=== PATIENT | male | born 1955 | race American Indian/Alaskan Native ===

== ENCOUNTER 2023-10-13 06:42 | Day surgery (SDC) | payer MEDICARE, OTHER ==
[~2023-10-13] VITALS: Ht 182.9 cm; Wt 101.2 kg
[~2023-10-13 06:42] MED LIST: Aciphex20 MG PO; DOXEPIN HCL3 MG PO; Flomax0.4 MG PO; Pravastatin Sod80 MG PO; Robaxin750 MG PO; SYNTHROID175 MC1 PO; VALS80 PO
[2023-10-13 09:14] VITALS: BP 125/94
--- NOTE | 2023-10-13 09:15 | NUR ---
10[facility]13[facility]23 0915 [facility] PT REPORTED NAUSEA AND CRAMPING PAIN. BOTH SYMPTOMS IMPROVED AFTER PATIENT PASSED SOME GAS AND DRANK SOME PO FLUIDS. PATIENT STATED READY TO GO HOME AND NOT WORRIED ABOUT NAUSEA OR PAIN.
== END 2023-10-13 09:07 | disposition home or self-care (01) ==
LOC: ORSCSDS 06:42
PROVIDERS: Specialist
PROC: 0DBM8ZX Excision of Descending Colon, Via Natural or Artificial Opening Endoscopic, Diagnostic (ICD-10-PCS; principal; 2023-10-13 08:00)
PROC: 0DBL8ZX Excision of Transverse Colon, Via Natural or Artificial Opening Endoscopic, Diagnostic (ICD-10-PCS; principal; 2023-10-13 08:00)
PROC: 0DBP8ZX Excision of Rectum, Via Natural or Artificial Opening Endoscopic, Diagnostic (ICD-10-PCS; principal; 2023-10-13 08:00)
PROC: 0DBH8ZX Excision of Cecum, Via Natural or Artificial Opening Endoscopic, Diagnostic (ICD-10-PCS; principal; 2023-10-13 08:00)
DX: Z12.11 Encounter for screening for malignant neoplasm of colon (principal); Z86.010 Personal history of colon polyps; D12.0 Benign neoplasm of cecum; D12.3 Benign neoplasm of transverse colon; D12.4 Benign neoplasm of descending colon; K62.1 Rectal polyp; K57.30 Diverticulosis of large intestine without perforation or abscess without bleeding; K64.4 Residual hemorrhoidal skin tags; Z85.46 Personal history of malignant neoplasm of prostate; Z85.850 Personal history of malignant neoplasm of thyroid; E78.5 Hyperlipidemia, unspecified; K21.9 Gastro-esophageal reflux disease without esophagitis; Z79.899 Other long term (current) drug therapy
CPT/HCPCS: 88305; J2704; J7120

== ENCOUNTER 2024-04-16 03:37 | Inpatient (IN) | payer MEDICARE, OTHER ==
[~2024-04-16] VITALS: Ht 182.9 cm; Wt 113.1 kg
[2024-04-16] VITALS (13 sets, daily range): BP systolic 115–140; BP diastolic 86–113
[2024-04-16 04:03] LABS: BASOPHILS ABSOLUTE AUTO 0.09 K/mm3 (0.00-0.23); BASOPHILS PERCENT AUTO 1 % (0-2); EOSINOPHILS ABSOLUTE AUTO 0.22 K/mm3 (0.00-0.68); EOSINOPHILS PERCENT AUTO 3 % (0-6); Hematocrit 51.6 % (37.0-53.0); Hemoglobin 17.2 g/dL (13.5-17.5); IMMATURE GRAN ABSOLUTE AUTO 0.02 K/mm3 (0.00-0.10); IMMATURE GRAN PERCENT AUTO 0 % (0-1); LYMPHOCYTES ABSOLUTE AUTO 1.67 K/mm3 (0.84-5.20); LYMPHOCYTES PERCENT AUTO 24 % (21-46); MONOCYTES ABSOLUTE AUTO 0.44 K/mm3 (0.16-1.47); MONOCYTES PERCENT AUTO 6 % (4-13); Mean Corpuscular HGB 29.2 pg (26.0-34.0); Mean Corpuscular HGB Conc 33.3 g/dL (31.5-36.5); Mean Corpuscular Volume 88 fL (80-100); Mean Platelet Volume 10.6 fL (9.1-12.4); NEUTROPHILS ABSOLUTE AUTO 4.61 K/mm3 (1.96-9.15); NEUTROPHILS PERCENT AUTO 65 % (41-73); Platelet Count 188 K/mm3 (150-400); RDW Coefficient Variation 12.8 % (11.7-14.2); RDW Standard Deviation 41.2 fL (35.1-46.3); Red Blood Cell Count 5.89 M/mm3 (4.30-5.90); White Blood Cell Count 7.05 K/mm3 (4.00-11.30)
[2024-04-16 04:22] LABS: Albumin, Blood 3.8 g/dL (3.4-5.0); Albumin/Globulin Ratio 1.1 (0.8-1.8); Bilirubin, Total 0.5 mg/dL (0.1-1.0); Bun/Creatinine Ratio 11.3 (12.0-20.0); Calcium, Blood 8.8 mg/dL (8.5-10.1); Creatinine, Blood 1.51 mg/dL (0.60-1.20); Globulin, Blood 3.5 g/dL (2.2-4.0); Potassium, Blood 4.1 mmol/L (3.5-5.5); Total Protein, Blood 7.3 g/dL (6.4-8.2)
[2024-04-16] MEDS ORDERED: Ondansetron HCl 2 MG / ML 2ML Vial IV PRN (05:25)
[2024-04-16] MEDS ORDERED: Nitroglycerin 0.4 MG SUBL SL PRN (05:25)
[2024-04-16] MEDS ORDERED: Acetaminophen 325 MG TABLET PO PRN (05:30)
[2024-04-16] MEDS ORDERED: Levothyroxine Sodium 0.175 MG TAB PO SCH (06:00)
[2024-04-16 06:02] LABS: Anti-Xa UFH, PHA Monitoring <0.10 IU/mL; International Normalized Ratio 0.96; Prothrombin Time Results 10.3 Sec (9.7-11.5)
[2024-04-16] MEDS ORDERED: Heparin Sodium,Porcine/0.5 NS 500 ML IV SCH (06:20)
[2024-04-16] MEDS ORDERED: Heparin Sodium 5000 Units/ML 1ML MDV IV ONE (06:20)
[2024-04-16] MEDS ORDERED: Lactated Ringer's 1,000 ML IV SCH (06:30)
--- NOTE | 2024-04-16 07:55 | NUR ---
ADMISSION: Pt admtted to PCU 5 from ER. He is alert and oriented at this time. Pt transferres from stetcher to hospital bed independently.
[2024-04-16] MEDS ORDERED: Aspirin 81 MG Chew PO SCH (09:00)
[2024-04-16] MEDS ORDERED: Metoprolol Succinate 25 MG TABCR PO SCH (09:00)
[2024-04-16] MEDS ORDERED: Atorvastatin 40 MG Tab PO SCH (09:00)
[2024-04-16] MEDS ORDERED: Losartan Potassium 25 MG Tab PO SCH (09:00)
[2024-04-16] MEDS ORDERED: FentaNYL Citrate 50 MCG/ML 2 ML Injection ONE (12:44)
[2024-04-16] MEDS ORDERED: Midazolam HCl 1MG / ML 2ML Vial ONE (12:44)
[2024-04-16] MEDS ORDERED: Heparin Sodium 1000 Units/ML 10ML MDV ONE (12:46)
--- NOTE | 2024-04-16 13:20 | NUR ---
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 No chest pain or shortness of breath. TR band in place without blood or oozing visualized. Distal CMS intact.
--- NOTE | 2024-04-16 14:18 | NUR ---
HEPARIN INFUSION: Discussed with Dr Powers. If able to recover TR band prior to manager transport instructed to restart heparin. However, if unable to recover TR band prior to transport, will leave heparin off as there is concern for bleeding risk in ambulance.
--- NOTE | 2024-04-16 15:23 | NUR ---
DISCHARGE SUMMARY: Pt left hospital via EMS stretcher with EMS. He is being transported to [facility]. All air removed from TR band. This RN discussed resuming heparin prior to transport with Dr Powers; RN instructed to leave heparin off due to bleeding risk. Report was given to EMS.
== END 2024-04-16 15:25 | disposition short-term general hospital (02) | DRG 282 ==
LOC: ER 03:37 → PCU 05:24
PROVIDERS: Student in an Organized Health Care Education/Training Program; ADMIT Student in an Organized Health Care Education/Training Program
PROC: 4A023N7 Measurement of Cardiac Sampling and Pressure, Left Heart, Percutaneous Approach (ICD-10-PCS; principal; 2024-04-16)
PROC: B2111ZZ Fluoroscopy of Multiple Coronary Arteries using Low Osmolar Contrast (ICD-10-PCS; 2024-04-16)
DX: I21.4 Non-ST elevation (NSTEMI) myocardial infarction (principal); E78.5 Hyperlipidemia, unspecified; N18.31 Chronic kidney disease, stage 3a; K21.9 Gastro-esophageal reflux disease without esophagitis; E89.0 Postprocedural hypothyroidism; F17.210 Nicotine dependence, cigarettes, uncomplicated; Z85.46 Personal history of malignant neoplasm of prostate; Z85.850 Personal history of malignant neoplasm of thyroid; I12.9 Hypertensive chronic kidney disease with stage 1 through stage 4 chronic kidney disease, or unspecified chronic kidney disease; Z79.890 Hormone replacement therapy; Z79.899 Other long term (current) drug therapy; I25.10 Atherosclerotic heart disease of native coronary artery without angina pectoris; Z92.3 Personal history of irradiation; Z86.010 Personal history of colon polyps; Z98.1 Arthrodesis status; Z98.890 Other specified postprocedural states; Z71.6 Tobacco abuse counseling; Z99.81 Dependence on supplemental oxygen
CPT/HCPCS: 36415; 71046; 76937; 80053; 83690; 83735; 83880; 84484; 85025; 85520; 85610; 85730; 93005; 93010; 93458; 99152; 99153; 99285-25; A9270; C1769; C1887; C1894; C8929; J1644; J2250; J3010; J7120; Q9957; Q9967

== ENCOUNTER 2025-08-24 18:03 | Emergency (ER) | payer MEDICARE, OTHER ==
[~2025-08-24] VITALS: Ht 182.9 cm; Wt 108.0 kg
[2025-08-24 19:05] LABS: Source, Urine Clean Catch
[2025-08-24 19:08] LABS: BASOPHILS ABSOLUTE AUTO 0.05 K/mm3 (0.00-0.23); BASOPHILS PERCENT AUTO 1 % (0-2); EOSINOPHILS ABSOLUTE AUTO 0.04 K/mm3 (0.00-0.68); EOSINOPHILS PERCENT AUTO 1 % (0-6); Hematocrit 52.9 % (37.0-53.0); Hemoglobin 17.6 g/dL (13.5-17.5); IMMATURE GRAN ABSOLUTE AUTO 0.02 K/mm3 (0.00-0.10); IMMATURE GRAN PERCENT AUTO 0 % (0-1); LYMPHOCYTES ABSOLUTE AUTO 0.71 K/mm3 (0.84-5.20); LYMPHOCYTES PERCENT AUTO 13 % (21-46); MONOCYTES ABSOLUTE AUTO 0.51 K/mm3 (0.16-1.47); MONOCYTES PERCENT AUTO 9 % (4-13); Mean Corpuscular HGB Conc 33.3 g/dL (31.5-36.5); Mean Corpuscular Volume 87 fL (80-100); NEUTROPHILS ABSOLUTE AUTO 4.33 K/mm3 (1.96-9.15); NEUTROPHILS PERCENT AUTO 77 % (41-73); NRBC ABSOLUTE 0.00 K/mm3 (0.00-0.02); NRBC Auto 0.0 /100 WBC (0.0-0.2); Platelet Count 162 K/mm3 (150-400); RDW Coefficient Variation 12.8 % (11.7-14.2); RDW Standard Deviation 41.1 fL (35.1-46.3)
[2025-08-24 19:24] LABS: Bilirubin, Urine Neg (Neg); Color, Urine Yellow (P-Yellow); Glucose Qualitative, Urine Neg (Neg); Ketones, Urine 4+ (Neg); Leukocyte Esterase, Urine 3+ (Neg); Protein, Urine 2+ (Neg); Specific Gravity, Urine 1.010 (1.003-1.022); Urobilinogen, Urine NORM (Normal)
[2025-08-24 19:41] LABS: White Blood Cells, Urine 50-100 /hpf (0-5)
[2025-08-24 19:47] LABS: Alanine Aminotransfer (ALT/SGP 10.0 U/L (12-78); Albumin, Blood 3.6 g/dL (3.4-5.0); Albumin/Globulin Ratio 1.0 (0.8-1.8); Anion Gap 10.0 mmol/L (3-11); Aspartate Aminotrans (AST/SGOT 12.0 U/L (12-37); Bilirubin, Total 1.0 mg/dL (0.1-1.0); Blood Urea Nitrogen 14.0 mg/dL (8-24); CO2, Blood 24.0 mmol/L (21-32); Calcium, Blood 9.0 mg/dL (8.5-10.1); Chloride, Blood 104.0 mmol/L (98-108); Creatinine, Blood 1.31 mg/dL (0.60-1.20); Globulin, Blood 3.6 g/dL (2.2-4.0); Glucose, Blood 88.0 mg/dL (70-99); Potassium, Blood 4.3 mmol/L (3.5-5.5); Sodium, Blood 134.0 mmol/L (136-145); Total Protein, Blood 7.2 g/dL (6.4-8.2)
[2025-08-24] MEDS ORDERED: DOXY100 PO (22:31)
[2025-08-24] MEDS ORDERED: Ondansetron 4 MG SoluTab SL ONE (22:35)
[2025-08-24] MEDS ORDERED: ONDA4 PO (22:39)
[2025-08-24] MEDS ORDERED: RX Prepack 2 Tabs Ondansetron ODT 4MG UD ONE (22:40)
[2025-08-24 22:50] VITALS: BP 121/72
== END 2025-08-24 22:51 | disposition home or self-care (01) ==
LOC: ER 18:03
PROVIDERS: Emergency Medicine
DX: J18.9 Pneumonia, unspecified organism (principal); N39.0 Urinary tract infection, site not specified; Z79.899 Other long term (current) drug therapy; K21.9 Gastro-esophageal reflux disease without esophagitis; E78.5 Hyperlipidemia, unspecified; F17.210 Nicotine dependence, cigarettes, uncomplicated
CPT/HCPCS: 71046; 76870; 80053; 81001; 85025; 87086; 99284-25; A9270